=== PATIENT | male | born 1965 | race Caucasian/White ===

== ENCOUNTER 2018-03-28 15:58 | Emergency (ER) | payer BC ==
[2018-03-28] MEDS ORDERED: LISI-362 PO (16:44)
[2018-03-28] MEDS ORDERED: METF-452 PO (16:44)
[2018-03-28] MEDS ORDERED: METO25TA23 PO (16:44)
[2018-03-28] MEDS ORDERED: ASPI-1471 PO (16:44)
[2018-03-28] MEDS ORDERED: MELO-207 PO (16:44)
[2018-03-28] MEDS ORDERED: DAPA10TA PO (16:44)
[2018-03-28] MEDS ORDERED: ATR80PT PO (16:44)
[2018-03-28] MEDS ORDERED: MELO-205 PO (16:44)
--- NOTE | 2018-03-28 16:56 | ER Report ---
History and Physical Time Seen By MD: 16:57 Hx. of Stated Complaint: BLOOD IN URINE STARTED THIS AM, SLIGHT LEFT SIDED ABD PAIN, HPI/ROS CHIEF COMPLAINT: blood in urine HISTORY OF PRESENT ILLNESS: Patient noticed blood in his urine this am. Patient states he has had kidney stones in the past and he did not have any pain from the stones. 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 Patient does not have any pain with urination, increased frequency or odor. Patient states he now has some pain LUQ. Patient doesn't know if it's really pain or if he's just being a "hypochondriac." REVIEW OF SYSTEMS: General: No fever/chills. Respiratory: No cough, no dyspnea. Cardiovascular: No chest pain, no palpitations. Gastrointestinal: No vomiting, no abdominal pain. Musculoskeletal: No back pain. Allergies: Coded Allergies: Penicillins (Verified Allergy, Unknown, 03/28/18) codeine (Verified Adverse Reaction, Unknown, 03/28/18) MAKES STOMACH BLEED Home Meds Active Scripts Hydrocodone Bit/Acetaminophen (HYDROCODON-ACETAMINOPHEN 5-325) 1 Each Tablet, 1 EACH PO Q4-6H PRN for PAIN, #8 TAB Prov:ALEJANDRO BERRY [facility] 03/28/18 Tamsulosin Hcl (FLOMAX) 0.4 Mg Cap.er.24h, 0.4 MG PO DAILY, #15 CAP Prov:ALEJANDRO BERRY [facility] 03/28/18 Reported Medications Aspirin (ASPIR 81) 81 Mg Tablet.dr, 81 MG PO QDAY, TAB 03/28/18 Meloxicam (MELOXICAM) 15 Mg Tablet, 15 MG PO QDAY 03/28/18 Meloxicam (MELOXICAM) 7.5 Mg Tablet, PO QDAY 03/28/18 Atorvastatin (LIPITOR) 80 Mg Tab, 1 TAB PO HS, TAB 03/28/18 Dapagliflozin Propanediol (Farxiga) 10 Mg Tablet, PO DAILY 03/28/18 Lisinopril (LISINOPRIL) 10 Mg Tablet, 10 MG PO QDAY, TAB 03/28/18 Metoprolol Succinate (METOPROLOL SUCCINATE) 25 Mg Tab.er.24h, 1 TAB PO BID, TAB 03/28/18 Metformin Hcl (METFORMIN HCL) 1,000 Mg Tablet, 1 TAB PO BID, TAB 03/28/18 Past Medical/Surgical History Patient has a medical history of diabetes, hypertension, hypercholesterolemia, myocardial infarction, neuropathy, and renal calculi. Patient had L4-L5 back surgery, and coronary stent placed. Constitutional Vital Sign - Last 24 Hours 03/28/18 03/28/18 16:15 18:46 Temp 97.5 Pulse 98 104 Resp 16 18 B/P (MAP) 130/86 129/84 (99) Pulse Ox 91 92 O2 Delivery Room Air Physical Exam General Appearance: The patient is alert, has no immediate need for airway protection and no current signs of toxicity. Respiratory: Chest is non tender, lungs are clear to auscultation. Cardiac: regular rate and rhythm Gastrointestinal: Abdomen is soft and non tender, no masses, bowel sounds normal. DIFFERENTIAL DIAGNOSIS: After history and physical exam differential diagnosis was considered for renal calculi, urinary tract infection, hematuria. Medical Decision Making Data Points Laboratory Hematology Test 03/28/18 16:58 Urine Color Yellow Urine Clarity Slightly-cloudy Urine pH 6.0 pH (4.8-9.5) Urine Specific [place] 1.033 Urine Protein 30 mg/dL (NEGATIVE) Urine Glucose (UA) 500 mg/dL (NEGATIVE) Urine Ketones Trace mg/dL (NEGATIVE) Urine Blood Large (NEGATIVE) Urine Nitrite Negative (NEGATIVE) Urine Bilirubin Negative (NEGATIVE) Urine Urobilinogen Negative mg/dL (0.2-1.9) Urine Leukocyte Esterase Negative (NEGATIVE) Urine RBC 1579 /HPF (0-2/HPF) Urine WBC 1 /HPF (0-5/HPF) Urine Squamous Epithelial Cells None /LPF (</=FEW) Urine Bacteria Negative /HPF (NONE-FEW) Urine Mucus None /HPF (NONE-FEW) Chemistry Test 03/28/18 16:58 Urine Color Yellow Urine Clarity Slightly-cloudy Urine pH 6.0 pH (4.8-9.5) Urine Specific [place] 1.033 Urine Protein 30 mg/dL (NEGATIVE) Urine Glucose (UA) 500 mg/dL (NEGATIVE) Urine Ketones Trace mg/dL (NEGATIVE) Urine Blood Large (NEGATIVE) Urine Nitrite Negative (NEGATIVE) Urine Bilirubin Negative (NEGATIVE) Urine Urobilinogen Negative mg/dL (0.2-1.9) Urine Leukocyte Esterase Negative (NEGATIVE) Urine RBC 1579 /HPF (0-2/HPF) Urine WBC 1 /HPF (0-5/HPF) Urine Squamous Epithelial Cells None /LPF (</=FEW) Urine Bacteria Negative /HPF (NONE-FEW) Urine Mucus None /HPF (NONE-FEW) Urinalysis Test 03/28/18 16:58 Urine Color Yellow Urine Clarity Slightly-cloudy Urine pH 6.0 pH (4.8-9.5) Urine Specific [place] 1.033 Urine Protein 30 mg/dL (NEGATIVE) Urine Glucose (UA) 500 mg/dL (NEGATIVE) Urine Ketones Trace mg/dL (NEGATIVE) Urine Blood Large (NEGATIVE) Urine Nitrite Negative (NEGATIVE) Urine Bilirubin Negative (NEGATIVE) Urine Urobilinogen Negative mg/dL (0.2-1.9) Urine Leukocyte Esterase Negative (NEGATIVE) Urine RBC 1579 /HPF (0-2/HPF) Urine WBC 1 /HPF (0-5/HPF) Urine Squamous Epithelial Cells None /LPF (</=FEW) Urine Bacteria Negative /HPF (NONE-FEW) Urine Mucus None /HPF (NONE-FEW) EKG/Imaging Imaging EXAMINATION: CT ABDOMEN AND PELVIS WITHOUT CONTRAST COMPARISON: None. HISTORY: hematuria, hx of renal calculi PROCEDURE: Multiplanar noncontrast CT of the abdomen and pelvis. One of the following dose optimization techniques was utilized in the performance of this exam: Automated exposure control; adjustment of the mA and/or kV according to the patient's size; or use of an iterative reconstruction technique. Specific details can be referenced in the facility's radiology CT exam operational policy. FINDINGS: Evaluation of the solid and viscus parenchymal organs and vascular structures is limited without the benefit of IV contrast. Visualized thorax: Incompletely visualized right coronary calcification versus coronary stent. No acute findings. Liver: Noncontrast imaging of the visualized liver is within normal limits. Gallbladder and biliary system: Negative Spleen: Negative. Pancreas: Noncontrast imaging of the pancreas is within normal limits. Adrenal glands: Negative. Kidneys and bladder: Right mid ureter 8 x 8 x 6 mm stone at approximately the level of L5. No hydronephrosis. A 3 mm nonobstructing stone is also present in the right kidney lower pole. Two small nonobstructing stones in the left kidney, the largest of which measures 4 mm. No radiopaque ureteral stone or hydronep hrosis on the left. Urinary bladder is within normal limits. Vessels: Not atherosclerosis. No abdominal aortic aneurysm. Bowel and mesentery: Stomach, small bowel, and appendix are within normal limits. Moderate amount of stool in the colon. No bowel or mesenteric inflammation. Pelvic organs: Negative. Lymph nodes: No adenopathy. Free air/free fluid: None. Abdominal wall and osseous structures: Abdominal wall is intact. L5-S1 moderate degenerative disc disease. No acute findings. IMPRESSION: 1. Right mid ureter 8 x 8 x 6 mm nonobstructing stone. 2. Bilateral nonobstructing nephrolithiasis. Report Dictated By: Lenin Rivera MD at 03/28/2018 5:45 PM Report E-Signed By: Lenin Rivera MD at 03/28/2018 5:53 PM ED Course/Re-evaluation ED Course Patient arrived at the ED and was placed in a room. Patient gave a sample of urine for a UA which showed red discoloration. History and physical was obtained. CT scan without contrast done. 8mm x 6 mm x 6 mm stone found in the left ureter. Does not obstruct flow. Prescription given to patient for tamsulosin and hydrocodone. Patient warning signs given and discharge instructions given to follow up with urology. Decision to Disposition Date: Mar 28, 2018 Decision to Disposition Time: 18:30 Depart Departure Latest Vital Signs Vital Signs Date Time Temp Pulse Resp B/P (MAP) Pulse Ox O2 Delivery O2 Flow Rate FiO2 03/28/18 18:46 104 18 129/84 (99) 92 03/28/18 16:15 97.5 Room Air Impression: Primary Impression: Kidney stone Condition: Improved Disposition: HOME OR SELF-CARE New Scripts Hydrocodone Bit/Acetaminophen (HYDROCODON-ACETAMINOPHEN 5-325) 1 Each Tablet 1 EACH PO Q4-6H PRN for PAIN, #8 TAB Prov: ALEJANDRO BERRY 03/28/18 Tamsulosin Hcl (FLOMAX) 0.4 Mg Cap.er.24h 0.4 MG PO DAILY, #15 CAP Prov: ALEJANDRO BERRY 03/28/18 Patient Instructions: Kidney Stones (ED) Additional Instructions: Increase fluid intake. Limit activity by pain. Don't drive after taking the pain medication. Return to the ER if condition worsens. Follow up with Urology, call to make an appointment. From the size of the stone you may need to have ultrasound to break it up. ALEJANDRO BERRY Mar 28, 2018 16:56
--- NOTE | 2018-03-28 17:57 | RADIOLOGY IMAGING REPORT ---
FACILITY: [facility] - [place] PATIENT NAME: Sherif Padilla : 1965 MR: [id number] V: [id number] EXAM DATE: ORDERING PHYSICIAN: ALEJANDRO BERRY TECHNOLOGIST: [place] [facility] [place]: Sherif Padilla : 1965 Visit/Account:[id number] Date of Sevice: 03/28/2018 EXAMINATION: CT ABDOMEN AND PELVIS WITHOUT CONTRAST COMPARISON: None. HISTORY: hematuria, hx of renal calculi PROCEDURE: Multiplanar noncontrast CT of the abdomen and pelvis. One of the following dose optimizati on techniques was utilized in the performance of this exam: Automated exposure control; adjustment of the mA and/or kV according to the patient's size; or use of an iterative reconstruction technique. Specific details can be referenced in the facility's radiology CT exam operational policy. FINDINGS: Evaluation of the solid and viscus parenchymal organs and vascular structures is limited wi thout the benefit of IV contrast. Visualized thorax: Incompletely visualized right coronary calcification versus coronary stent. No acu te findings. Liver: Noncontrast imaging of the visualized liver is within normal limits. Gallbladder and biliary system: Negative Spleen: Negative. Pancreas: Noncontrast imaging of the pancreas is within normal limits. Adrenal glands: Negative. Kidneys and bladder: Right mid ureter 8 x 8 x 6 mm stone at approximately the level of L5. No hydrone phrosis. A 3 mm nonobstructing stone is also present in the right kidney lower pole. Two small nonobs tructing stones in the left kidney, the largest of which measures 4 mm. No radiopaque ureteral stone or hydronephrosis on the left. Urinary bladder is within normal limits. Vessels: Not atherosclerosis. No abdominal aortic aneurysm. Bowel and mesentery: Stomach, small bowel, and appendix are within normal limits. Moderate amount of stool in the colon. No bowel or mesenteric inflammation. Pelvic organs: Negative. Lymph nodes: No adenopathy. Free air/free fluid: None. Abdominal wall and osseous structures: Abdominal wall is intact. L5-S1 moderate degenerative disc dis ease. No acute findings. IMPRESSION: 1. Right mid ureter 8 x 8 x 6 mm nonobstructing stone. 2. Bilateral nonobstructing nephrolithiasis. Report Dictated By: Lenin Rivera MD at 03/28/2018 5:45 PM Report E-Signed By: Lenin Rivera MD at 03/28/2018 5:53 PM WSN:[id number]
[2018-03-28] MEDS ORDERED: HYDR-385 PO (18:25)
[2018-03-28] MEDS ORDERED: TAMS0.4C25 PO (18:25)
[2018-03-28 18:46] VITALS: BP 129/84
== END 2018-03-28 18:38 | disposition home or self-care (01) ==
LOC: ER 16:49
DX: N20.0 Calculus of kidney (principal); Z87.442 Personal history of urinary calculi
CPT/HCPCS: 74176; 81001; 99284